=== PATIENT | male | born 1965 | race Caucasian/White ===

== ENCOUNTER 2023-04-20 17:17 | Emergency (ER) | payer BC, OTHER ==
[2023-04-20] MEDS ORDERED: Bacitracin 1 PK ONE (17:59)
[2023-04-20] MEDS ORDERED: Boostrix 0.5 ML (Tdap) VIAL (>/=7 yrs of age) ONE (18:00)
[2023-04-20] MEDS ORDERED: Lidocaine 1% (PF) 30 ML VIAL ONE (18:00)
[2023-04-20] MEDS ORDERED: traMADol HCl 50 MG TAB ONE (18:08)
[2023-04-20] MEDS ORDERED: Naproxen 500 MG TAB ONE (18:10)
== END 2023-04-20 18:49 | disposition home or self-care (01) ==
LOC: MADERS 17:17
DX: S61.521A Laceration with foreign body of right wrist, initial encounter (principal); S60.512A Abrasion of left hand, initial encounter; I10 Essential (primary) hypertension; E78.00 Pure hypercholesterolemia, unspecified; F17.220 Nicotine dependence, chewing tobacco, uncomplicated; W26.8XXA Contact with other sharp object(s), not elsewhere classified, initial encounter; Y93.89 Activity, other specified; Z23 Encounter for immunization; Z79.82 Long term (current) use of aspirin; Z79.899 Other long term (current) drug therapy
CPT/HCPCS: 12042; 90471; 90715; J2001